=== PATIENT | female | born 1990 | race Caucasian/White ===

== ENCOUNTER 2016-05-09 19:08 | Emergency (ER) | payer OTHER ==
[~2016-05-09] VITALS: Ht 162.6 cm; Wt 68.0 kg
[~2016-05-09 19:08] MED LIST: BACTRIM DS TAB1 EACH PO; IBUPROFEN 400400 M2 PO; KEFLEX500 MG PO; NAPROSYN500 MG PO; NORCO 5-325 TA1 EACH PO; ZOFRAN ODT4 MG PO
[2016-05-09] MEDS ORDERED: HYDROCODONE-AP1 EAC6 PO (19:27)
[2016-05-09] MEDS ORDERED: BACTRIM DS TAB1 EACH PO (20:18)
[2016-05-09 20:30] VITALS: BP 110/76
== END 2016-05-09 21:16 | disposition home or self-care (01) ==
LOC: ER 19:08
DX: L02.212 Cutaneous abscess of back [any part, except buttock and flank] (principal); F17.210 Nicotine dependence, cigarettes, uncomplicated